=== PATIENT | male | born 1970 | race Caucasian/White ===

== ENCOUNTER 2017-07-07 08:22 | Emergency (ER) | payer MEDICAID ==
[2017-07-07] MEDS: HYDROCODONE/APAP (10/325) TAB PO (08:53)
[2017-07-07] MEDS: IBUPROFEN 600 MG TAB PO (08:53)
[2017-07-07] MEDS: ONDANSETRON (ODT) 4 MG TAB ODT (08:53)
[2017-07-07] MEDS: KETAMINE 500 MG INJ IV (11:39)
[2017-07-07] MEDS: PROPOFOL 200 MG INJ IV (11:39)
[2017-07-07] MEDS: morphine 4 MG/ML VIAL IV (12:40)
[2017-07-07] MEDS: ONDANSETRON 4 MG INJ IV (12:40)
== END 2017-07-07 13:35 | disposition home or self-care (01) ==
LOC: FTE 08:22 → E/R 13:35
DX: S82.861A Displaced Maisonneuve's fracture of right leg, initial encounter for closed fracture (principal); I10 Essential (primary) hypertension; W18.30XA Fall on same level, unspecified, initial encounter; Y92.9 Unspecified place or not applicable
CPT/HCPCS: 27840; 73590; 73610-RT; 73630; 94770; 96374; 96375; 99285-25

== ENCOUNTER 2017-07-12 10:36 | Emergency (ER) | payer MEDICAID | END 2017-07-12 12:20 | disposition home or self-care (01) | LOC: FTE 10:36 | DX: M79.604 Pain in right leg (principal); I10 Essential (primary) hypertension | CPT/HCPCS: 29505; 99283-25 ==